=== PATIENT | male | born 1975 | race Caucasian/White ===

== ENCOUNTER 2019-01-12 08:44 | Emergency (ER) | payer OTHER ==
[2019-01-12] MEDS ORDERED: CIPROFLOXACIN HCL 0.2%/HYDROCORT 1% 10 ML OTIC SUSP ONE ×2 (09:12→09:16)
== END 2019-01-12 09:33 | disposition home or self-care (01) ==
LOC: EDH 08:44
DX: H60.8X1 Other otitis externa, right ear (principal); Z88.8 Allergy status to other drugs, medicaments and biological substances; Z87.891 Personal history of nicotine dependence

== ENCOUNTER 2019-01-14 10:08 | Emergency (ER) | payer OTHER ==
[2019-01-14] MEDS ORDERED: CEFTRIAXONE SODIUM 1 GM ONE (10:27)
[2019-01-14] MEDS ORDERED: LIDOCAINE HCL-MPF 1% 2ML VIAL ONE (10:27)
== END 2019-01-14 10:59 | disposition home or self-care (01) ==
LOC: EDH 10:08
DX: H66.91 Otitis media, unspecified, right ear (principal); H60.91 Unspecified otitis externa, right ear; Z87.891 Personal history of nicotine dependence; Z88.8 Allergy status to other drugs, medicaments and biological substances
CPT/HCPCS: 96372; 99283; J0696; J3490